=== PATIENT | female | born 1950 | race Caucasian/White ===

== ENCOUNTER 2020-07-29 12:17 | Emergency (ER) | payer MEDICARE ==
[2020-07-29 13:01] LABS: BASO # 0.08 (0.02-0.10); EOS # 0.27 (0.04-0.40); EOS % 2.6 % (1.0-5.0); HEMATOCRIT 43.2 % (37.0-47.0); HEMOGLOBIN 14.5 g/dL (12.5-16.0); MEAN CELL VOLUME 80 fl (78-100); MEAN CORPUSCULAR HEMOGLOBIN 27 pg (27-31); MEAN CORPUSCULAR HGB CONC 34 g/dL (33-37); MEAN PLATELET VOLUME 9.6 fl (7.4-10.4); MONO # 1.06 (0.20-0.80); NEU # 6.69 (1.40-6.50); PLATELET COUNT 278 K/mm3 (130-400); RED BLOOD COUNT 5.41 M/mm3 (4.10-5.30); RED CELL DISTRIBUTION WIDTH 13.6 % (11.5-14.5); WHITE BLOOD COUNT 10.3 K/mm3 (4.8-10.8)
[2020-07-29 13:09] LABS: ALBUMIN 4.1 g/dL (3.4-4.8); SODIUM 139 mmol/L (136-145)
[2020-07-29 13:10] LABS: CALCIUM 10.2 mg/dL (8.3-10.5)
[2020-07-29 13:11] LABS: GLUCOSE 130 mg/dL (65-105); TOTAL PROTEIN 8.1 g/dL (6.2-8.1)
[2020-07-29 13:12] LABS: CARBON DIOXIDE 27 mmol/L (23-31)
[2020-07-29 13:13] LABS: TOTAL BILIRUBIN 1.2 mg/dL (0.2-1.2)
[2020-07-29 13:17] LABS: AST-SGOT 17 U/L (5-34)
[2020-07-29 13:18] LABS: ALT/SGPT 15 U/L (0-55); LIPASE 21 U/L (8-78)
[2020-07-29 13:34] LABS: PROTHROMBIN TIME 11.7 SECONDS (9.0-12.0)
[2020-07-29 13:37] LABS: TROPONIN-I < 0.03 ng/mL (<0.030)
[2020-07-29 13:44] LABS: D-DIMER 0.56 mg/L FEU (0.15-0.50)
[2020-07-29 14:28] LABS: URINE APPEARANCE CLOUDY; URINE COLOR YELLOW
[2020-07-29 14:30] LABS: URINE BILIRUBIN NEGATIVE (NEGATIVE); URINE BLOOD 50 ery/uL (NEGATIVE); URINE GLUCOSE NEGATIVE (NEGATIVE); URINE KETONE NEGATIVE (NEGATIVE); URINE LEUKOCYTE ESTERASE 2+ (NEGATIVE); URINE NITRATE NEGATIVE (NEGATIVE); URINE PROTEIN(semi-quant) 3+ mg/dL (NEGATIVE); URINE UROBILINOGEN NORMAL (NORMAL); URINE WBC 16-30 /hpf (0-3)
[2020-07-29] MEDS ORDERED: CARVEDILOL12.5 MG PO (15:17)
[2020-07-29] MEDS ORDERED: PANTOPRAZOLE SO40 MG PO (15:17)
[2020-07-29] MEDS ORDERED: NORVASC 10MG10 MG PO (15:17)
[2020-07-29] MEDS ORDERED: CLONIDINE HYDR0.1 MG PO (15:17)
[2020-07-29] MEDS ORDERED: LANTUS SOLOS100 U/ML SQ (15:18)
[2020-07-29] MEDS ORDERED: EUTHYROX112 MCG PO (15:18)
[2020-07-29] MEDS ORDERED: POTASSIUM CHLO20 ME4 PO (15:18)
[2020-07-29] MEDS ORDERED: NOVOLOG FLEX100 U/ML SQ (15:18)
[2020-07-29] MEDS ORDERED: SIMVASTATIN40 M1 PO (15:19)
[2020-07-29] MEDS ORDERED: NITROGLYCERIN0.4 M1 SL (15:19)
[2020-07-29] MEDS ORDERED: VASOTEC 10M10 MG/TAB PO (15:19)
[2020-07-29] MEDS ORDERED: SERTRALINE HYD100 MG PO (15:19)
[2020-07-29 18:51] VITALS: BP 160/79
== END 2020-07-29 18:54 | disposition home or self-care (01) ==
LOC: ED 12:17
PROVIDERS: Nurse Practitioner
DX: I10 Essential (primary) hypertension (principal); E11.9 Type 2 diabetes mellitus without complications; F03.90 Unspecified dementia, unspecified severity, without behavioral disturbance, psychotic disturbance, mood disturbance, and anxiety; Z91.14 Patient's other noncompliance with medication regimen; Z79.4 Long term (current) use of insulin; Z79.899 Other long term (current) drug therapy
CPT/HCPCS: Q9967